=== PATIENT | male | born 1970 | race Caucasian/White ===

== ENCOUNTER → 2018-06-09 | Outpatient (CLI) | payer OTHER ==
[~2018-06-09] MED LIST: AMLO-127 PO; AMLO-552 PO; FAMO20TA28 PO; FLU60SYR36 IM; LORA-802 PO; OLME40TA28 PO
[2018-06-09 11:30] LABS: PLATELET COUNT, AUTOMATED 259 K/uL (150-450)
[2018-06-09 11:47] LABS: LDL CHOLESTEROL 134 mg/dl
== END ==
LOC: LAB 10:41
PROVIDERS: ATTEND Internal Medicine
DX: Z12.5 Encounter for screening for malignant neoplasm of prostate (principal); I10 Essential (primary) hypertension; I34.1 Nonrheumatic mitral (valve) prolapse
CPT/HCPCS: 36415; 81001; 82040; 82247; 82310; 82374; 82435; 82465; 82565; 82947; 83718; 84075; 84132; 84153; 84155; 84295; 84443; 84450; 84460; 84478; 84520; 85025

== ENCOUNTER → 2018-06-23 | Outpatient (CLI) | payer OTHER | LOC: US 01:10 | PROVIDERS: ATTEND Internal Medicine | DX: I34.1 Nonrheumatic mitral (valve) prolapse (principal); I51.7 Cardiomegaly | CPT/HCPCS: 93306 ==

== ENCOUNTER 2018-09-24 00:43 | Day surgery (SDC) | payer OTHER ==
[~2018-09-24] VITALS: Ht 182.9 cm; Wt 106.6 kg
[~2018-09-24 00:43] MED LIST changes: +LOSA100T75 PO
[2018-09-24 07:21] VITALS: BP 144/82
[2018-09-24] MEDS ORDERED: LIDOCAINE/SOD BICARB 8.4% SYR ID ONE (07:45)
[2018-09-24] MEDS ORDERED: NORMOSOL R SOLN(*) 1000 ML BAG 1,000 ML IV PRN (07:45)
[2018-09-24] MEDS ORDERED: LIDOCAINE MPF 1% 5 ML VIAL ONE (09:14)
[2018-09-24] MEDS ORDERED: PROPOFOL EMUL(*) 10MG/ML 20 ML 40 ML ONE (09:14)
[2018-09-24 10:27] VITALS: BP 114/78
--- NOTE | 2018-09-24 10:33 | Short(Outpt) Discharge Summary ---
Discharge Summary Reason for Hosp/Final Diag: (1) Encounter for screening colonoscopy Hospital Course & Plan: pt presented for colonoscopy. he tolerated the procedure well. he will be discharged home when criteria met. Discharge Instructions Home Meds Active Scripts Amlodipine Besylate (AMLODIPINE BESYLATE) 10 Mg Tablet, 1 TAB PO QDAY, #90 TAB 3 Refills Prov:JENI SMITH MD 06/08/18 Reported Medications Olmesartan Medoxomil (BENICAR) 40 Mg Tablet, 40 MG PO DAILY 09/16/18 Diet: Regular Activity: As Tolerated Special Instructions: repeat colonoscopy in 10 yrs. BROOKLYN BLANCO September 24, 2018 10:33
[2018-09-24 11:00] VITALS: BP 119/80
[2018-09-24 11:34] VITALS: BP 136/94
[2018-09-24 11:36] VITALS: BP 128/91
--- NOTE | 2018-09-24 12:03 | NUR ---
1130 ASSUMED CARE OF PT, READY TO GO HOME, ORTHOSTATICS DONE, STABLE, PT ALLOWED TO DRESS 1140 IV OUT, PRESSURE DRESSING APPLIED, REASSESSED, UNREMARKABLE, STEADY ON FEET, CALLED , WILL MEET AT ADMITTING. 1145 D/C INSTRUCTIONS COVERED, ALL QUESTIONS ANSWERED 1150 D/C INSTRUCTIONS COVERED WITH , PAT, ALL QUESTIONS ANSWERED, OUT O CAR OUTSIDE OF ADMITTING BY FOOT, DECLINES WC, V. STEADY ON FEET, SELF TRANSFERRED INTO CAR WITHOUT INCIDENT. ALL BELONGINGS WITH PT
== END 2018-09-24 11:55 | disposition home or self-care (01) ==
LOC: OR 00:43
PROVIDERS: ATTEND Surgery
DX: Z12.11 Encounter for screening for malignant neoplasm of colon (principal); I10 Essential (primary) hypertension
CPT/HCPCS: 00812; 45378; J2001; J2704